=== PATIENT | male | born 1995 | race Caucasian/White ===

== ENCOUNTER 2020-02-12 09:06 | Emergency (ER) | payer OTHER ==
[~2020-02-12] VITALS: Ht 165.1 cm; Wt 65.9 kg
[2020-02-12 09:35] VITALS: BP 113/80
== END 2020-02-12 10:45 | disposition home or self-care (01) ==
LOC: ED 10:19
DX: U07.1 COVID-19 (principal); J06.9 Acute upper respiratory infection, unspecified; J00 Acute nasopharyngitis [common cold]; M79.10 Myalgia, unspecified site; R50.9 Fever, unspecified; R05 Cough; R06.02 Shortness of breath; R07.89 Other chest pain; R09.81 Nasal congestion; R06.00 Dyspnea, unspecified
CPT/HCPCS: 71045; 87635; 93005; 99285